=== PATIENT | female | born 1970 | race Caucasian/White ===

== ENCOUNTER 2018-07-10 07:40 | Outpatient (CLI) | payer BC, SELFPAY ==
[2018-07-10 09:00] LABS: Abs Immature Grans 0.04 k/cumm (0.0-0.09); Absolute Basophil Count 0.04 k/cumm (0.0-0.2); Absolute Eosinophil Count 0.28 k/cumm (0.0-0.7); Absolute Lymphocyte Count 3.31 k/cumm (1.2-3.4); Absolute Neutrophil Count 7.48 k/cumm (1.2-6.7); Basophils % 0.3; Eosinophils % 2.3; HCT 40.2 % (36.0-46.0); HGB 13.1 g/dL (12.0-15.5); Immature Grans % 0.3; Mean Corp. HGB Concentration 32.6 g/dL (32.0-36.0); Mean Corpuscular Volume 89.1 fL (80-95); Mean Platelet Volume 10.3 fL (8.0-11.0); Monocytes % 9.1; Platelet Count 379 x1000/uL (130-400); RBC 4.51 m/cumm (4.00-5.20); RBC Distribution Width 14.6 % (11.7-14.6); White Blood Cell Count 12.26 k/cumm (4.4-10.8)
[2018-07-10 09:05] LABS: Absolute Monocyte Count 1.12 k/cumm (0.11-0.7)
== END 2018-07-10 08:00 ==
PROVIDERS: PCP Nurse Practitioner; Visit Provider Nurse Practitioner
DX: R79.9 Abnormal finding of blood chemistry, unspecified (principal)
CPT/HCPCS: 36415; 85025

== ENCOUNTER 2018-08-25 00:35 | Outpatient (CLI) | payer BC, SELFPAY ==
--- NOTE | 2018-08-25 11:30 | DI.MAMMO_ITS ---
SYMPTOM/DIAGNOSIS: SCREENING, Z12.31 MAMMOGRAMS: Mammograms were interpreted according to the usual protocol including computer analysis with CAD system, tomosynthesis and C view imaging. Comparison is made with prior examinations. Breast density, category C. No masses or microcalcifications are seen. There is nothing to suggest malignancy. IMPRESSION: Negative mammogram. Routine screening is recommended. Category 1. MQSA ASSESSMENT OF FINDINGS: Negative. Category 1. Patient will receive a letter notifying them of these results. Bi-RADS category C. The breasts are heterogeneously dense, which may obscure small masses.
== END 2018-08-25 00:55 ==
PROVIDERS: PCP Nurse Practitioner; Visit Provider Nurse Practitioner
DX: Z12.31 Encounter for screening mammogram for malignant neoplasm of breast (principal)
CPT/HCPCS: 77063; 77067

== ENCOUNTER 2019-01-07 02:25 | Outpatient (CLI) | payer BC, SELFPAY ==
[2019-01-07 08:30] LABS: HCT 41.5 % (36.0-46.0); HGB 13.7 g/dL (12.0-15.5); Mean Corpuscular Volume 87.9 fL (80-95); Platelet Count 375 x1000/uL (130-400); RBC 4.72 m/cumm (4.00-5.20); RBC Distribution Width 14.9 % (11.7-14.6); White Blood Cell Count 9.74 k/cumm (4.4-10.8)
[2019-01-07 09:40] LABS: ALT 49 U/L (12-78); AST 20 U/L (15-37); Albumin 3.9 g/dL (3.4-5.0); Alkaline Phosphatase 71 U/L (46-116); BUN 25 mg/dL (7-18); Bilirubin, Total 0.3 mg/dL (0.2-1.0); CREATININE 0.92 mg/dL (0.55-1.02); Chloride 100 mmol/L (98-107); Cholesterol 240 mg/dL (50-200); Glucose 101 mg/dL (70-100); HDL Cholesterol 53 mg/dL (40-60); LDL CHOLESTEROL 165 mg/dL (<100); Potassium 4.2 mmol/L (3.5-5.1); Sodium 136 mmol/L (136-145); Total Protein 7.6 g/dL (6.4-8.2); Triglyceride 87 mg/dL (30-150)
[2019-01-07 09:48] LABS: Calcium 9.9 mg/dL (8.5-10.1)
== END 2019-01-07 02:45 ==
PROVIDERS: PCP Nurse Practitioner; Visit Provider Nurse Practitioner
DX: I10 Essential (primary) hypertension (principal); E78.5 Hyperlipidemia, unspecified
CPT/HCPCS: 36415; 80053; 80061; 83721; 85027

== ENCOUNTER 2019-04-07 01:09 | Outpatient (CLI) | payer BC, SELFPAY ==
[2019-04-07 09:48] LABS: Calculated LDL 193; Cholesterol 264 mg/dL (50-200); HDL Cholesterol 51 mg/dL (40-60); Triglyceride 101 mg/dL (30-150)
== END 2019-04-07 01:29 ==
PROVIDERS: PCP Nurse Practitioner; Visit Provider Nurse Practitioner
DX: E78.5 Hyperlipidemia, unspecified (principal); E66.9 Obesity, unspecified; I10 Essential (primary) hypertension
CPT/HCPCS: 36415; 80061; 83721; 84443

== ENCOUNTER 2019-06-18 07:28 | Outpatient (CLI) | payer BC, SELFPAY ==
[2019-06-18 08:37] LABS: Calculated LDL 85 mg/dL; Cholesterol 152 mg/dL (50-200); HDL Cholesterol 53 mg/dL (40-60); Triglyceride 73 mg/dL (30-150)
== END 2019-06-18 07:48 ==
PROVIDERS: PCP Nurse Practitioner; Visit Provider Nurse Practitioner
DX: E78.5 Hyperlipidemia, unspecified (principal)
CPT/HCPCS: 36415; 80061

== ENCOUNTER 2019-10-28 09:17 | Outpatient (CLI) | payer BC, SELFPAY ==
--- NOTE | 2019-10-28 15:47 | DI.RAD_ITS ---
EXAM: XR HIP RT COMPLETE AP PELVIS CLINICAL HISTORY: pain rt hip, M25.551 TECHNIQUE: COMPARISON: No exams were available for comparison FINDINGS: Two views were obtained. There is an IUD projected in the pelvic midline. No bony or soft tissue ab normality seen involving the hips or pelvis. IMPRESSION:
--- NOTE | 2019-10-28 15:49 | DI.RAD_ITS ---
EXAM: XR LUMBAR SPINE COMPLETE CLINICAL HISTORY: left leg numbness, right hip pain, R20.0, M25.551, ANESTHESIA OF SKIN TECHNIQUE: COMPARISON: No exams were available for comparison FINDINGS: Five views were obtained. IUD noted in the pelvic midline. Mild DJD of the SI joints noted bilatera lly. There is marked disc space narrowing at L1-2 and at L3-4 with associated vertebral body scleros is consistent with disc degeneration and with probable vacuum disc phenomenon at each of these levels . There are moderate hypertrophic degenerative changes involving the facet joints, particularly in t he lower lumbar region and hypertrophic spurring of the endplates is noted at L1-2 and L3-4. No evid ence of spondylolysis or spondylolisthesis. No compression fracture seen. IMPRESSION: Degenerative changes with evidence of disc degeneration, particularly at L1-2 and L3-4.
== END 2019-10-28 09:37 ==
PROVIDERS: PCP Nurse Practitioner; Visit Provider Nurse Practitioner
DX: M25.551 Pain in right hip (principal); R20.0 Anesthesia of skin; Z97.5 Presence of (intrauterine) contraceptive device; M79.605 Pain in left leg; M53.3 Sacrococcygeal disorders, not elsewhere classified; M51.36 Other intervertebral disc degeneration, lumbar region
CPT/HCPCS: 72110; 73502

== ENCOUNTER 2020-02-28 12:29 | Outpatient (CLI) | payer BC, SELFPAY ==
--- NOTE | 2020-02-28 13:00 | DI.RAD_ITS ---
EXAM: XR CERVICAL SPINE COMP 4-5V CLINICAL HISTORY: SHOOTING PAIN RIGHT ARM TO HAND. NECK PAIN, M79.601, M54.2 TECHNIQUE: Eight views were obtained. COMPARISON: No exams were available for comparison FINDINGS: Visualized lung apices are clear. Prevertebral soft tissues appear intact. There is a lower cervical kyphosis. There is disc space narrowing at C6-C7 with prominent anterior o steophyte formation at this level and anterior osteophyte or anterior ligament calcification at C5-6 as well. The neural foramina are not ideally visualized on the oblique views. Left neural foramina appear fairly well maintained with the possible exception of C7-T1. Right neural foramina not well v isualized. No significant vertebral compression deformity seen. Mild facet hypertrophic degenerative changes no everardo. IMPRESSION: Degenerative changes of the cervical spine as described above, predominantly involving the lower cerv ical spine. In the setting of possible radicular symptoms, additional evaluation with cervical spine MRI may be considered.
== END 2020-02-28 12:49 ==
PROVIDERS: PCP Nurse Practitioner; Visit Provider Nurse Practitioner
DX: M54.2 Cervicalgia (principal); M79.601 Pain in right arm; M79.641 Pain in right hand; M50.322 Other cervical disc degeneration at C5-C6 level; M50.323 Other cervical disc degeneration at C6-C7 level
CPT/HCPCS: 72050

== ENCOUNTER 2020-04-20 02:06 | Outpatient (CLI) | payer BC, SELFPAY ==
[2020-04-20 11:34] LABS: Hemoglobin A1C 5.5 % (3.8-5.6)
[2020-04-20 12:16] LABS: ALT 49 U/L (14-59); AST 18 U/L (15-37); Alkaline Phosphatase 74 U/L (46-116); Anion Gap 13.3 mmol/L (3-11); BUN 20 mg/dL (7-18); Bilirubin, Total 0.4 mg/dL (0.2-1.0); CO2 23.7 mmol/L (21.0-32.0); CREATININE 0.79 mg/dL (0.55-1.02); Calcium 10.1 mg/dL (8.5-10.1); Calculated LDL 87 mg/dL (<100); Chloride 101 mmol/L (98-107); Cholesterol 153 mg/dL (<200); Glucose 92 mg/dL (74-106); HDL Cholesterol 53 mg/dL (40-60); Potassium 4.3 mmol/L (3.5-5.1); Sodium 138 mmol/L (136-145); Total Protein 7.4 g/dL (6.4-8.2); Triglyceride 66 mg/dL (<150)
== END 2020-04-20 02:26 ==
PROVIDERS: PCP Nurse Practitioner; Visit Provider Nurse Practitioner
DX: I10 Essential (primary) hypertension; R73.01 Impaired fasting glucose; E78.5 Hyperlipidemia, unspecified; E66.9 Obesity, unspecified
CPT/HCPCS: 36415; 80053; 80061; 83036

== ENCOUNTER 2020-09-01 03:32 | Outpatient (CLI) | payer BC, SELFPAY ==
--- NOTE | 2020-09-01 15:00 | DI.MAMMO_ITS ---
EXAM: MG MAMMO SCREENING CLINICAL HISTORY: screening TECHNIQUE: Bilateral full field digital CC and MLO mammographic images were obtained with 3D tomosyn thesis and utilizing computer aided detection (CAD). COMPARISON: Available for comparison. FINDINGS: Masses/Architectural Distortion: None seen. Microcalcifications: No suspicious pleomorphic-type are seen. Skin Thickening/Nipple Retraction: None. IMPRESSION: 1. No significant interval change with no specific features of malignancy noted. 2. Unless there is more urgent need, screening mammography is recommended, as per [employer] guidelines. BI-RADS Category 1 - Negative Breast Density - Category C - Heterogeneously dense The mammogram demonstrates the patient's breast tissue is dense. Dense breast tissue is very common a nd is not abnormal but dense breast tissue can make it harder to find cancer on a mammogram. Also, de nse breast tissue may increase their breast cancer risk. This information about the result of the [facility] [place] [facility] mogram report was provided to the patient to raise their awareness. Use this report when you speak wi th the patient about their risks for breast cancer, which includes their family history. At that time , you may recommend for more screening tests (Ultrasound or MRI) as they might be useful based on the ir risk. A negative radiographic report should not delay biopsy if a dominant or clinically suspicious mass is present. Up to ten percent of cancers are not identified on mammography. A negative report may reinforce clinical impression. Adenosis and dense breasts may obscure an underlying neoplasm. False positive reports average 6 to 10%. Patient will receive a letter notifying them of these results.
== END 2020-09-01 03:52 ==
PROVIDERS: PCP Nurse Practitioner; Visit Provider Nurse Practitioner Women's Health
DX: Z12.31 Encounter for screening mammogram for malignant neoplasm of breast (principal); R92.2 Inconclusive mammogram
CPT/HCPCS: 77063; 77067

== ENCOUNTER 2020-09-12 17:53 | Outpatient (CLI) | payer BC, SELFPAY ==
--- NOTE | 2020-09-12 09:20 | DI.RAD_ITS ---
EXAM: XR KNEE LT 4V AP,LAT,BIJAL,PAT CLINICAL HISTORY: Left knee pain for 5-6 mos. Worse at night. M25.562. TECHNIQUE: 2D digital imaging was performed. COMPARISON: No exams were available for comparison FINDINGS: BONES: No acute fracture is present. No lytic or blastic bony lesion is seen. JOINTS: There is mild narrowing of the medial femoral tibial joint space and mild periarticular spurr ing. There is mild narrowing of the patellofemoral joint which also shows mild spurring. No joint e ffusion is seen. SOFT TISSUE: Normal. IMPRESSION: Mild degenerative changes of the medial femoral tibial joint and patellofemoral joint. DATA REPOSITORY: RADIATION DOSE DELIVERED:
== END 2020-09-12 18:13 ==
PROVIDERS: PCP Nurse Practitioner; Visit Provider Nurse Practitioner
DX: M17.12 Unilateral primary osteoarthritis, left knee (principal)
CPT/HCPCS: 73564

== ENCOUNTER 2020-10-27 03:37 | Outpatient (CLI) | payer BC, SELFPAY ==
[2020-10-28 15:29] LABS: COVID-19 RT-PCR UVMMC Result Negative (Negative)
== END 2020-10-27 03:57 ==
PROVIDERS: PCP Nurse Practitioner; Visit Provider Surgery
DX: Z11.52 Encounter for screening for COVID-19 (principal); Z01.818 Encounter for other preprocedural examination
CPT/HCPCS: U0003

== ENCOUNTER 2020-10-31 06:05 | Day surgery (SDC) | payer BC, SELFPAY ==
--- NOTE | 2020-10-30 21:42 | HPE_ITS ---
Date of service: 10/31/20 Time of Service: 07:22 Assessment and Plan Assessment and plan (1) Encounter for screening colonoscopy: Status: Acute Assessment and plan: Plan:Colonscopy w/ MAC The patient will be scheduled by my office. The pt understands that they need to do a bowel prep and the importance of hydration during this. The patient understands there is a theoretical risk of renal failure. For healthy patients we use Gatorade/Miralax Prep. For anyone with renal concerns- GoLytely will be used. Plavix and coumadin will need to be held except in unusual circumstances. Patients in A. Fib do not need to be bridged with Lovenox or on CVA prophylaxis. A baby ASA can be continued but full dose ASA needs to be stopped for 10 days prior to the procedure. A complete H & P is required within 30 days of the procedure. MAC is used for the colonoscopy. Colonoscopy does not require antibiotics prophylaxis. Risks: Informed consent is obtained for the procedural (explained in simple layman's terms that the pt and/or family could understand) explaining risks vs benefits and alternatives to the procedure and consequences if we do not do the procedure and need/rational for the procedure. Risks include but are not limited to: bleeding, infection, perforation of colon. This would necessitate emergency surgery to repair the damage w/ possible ostomy; and other associated complications w/ the required surgery. Also complications of anesthesia including aspiration, AZ/CVA/. pt is a higher risk of aspiration / other anethesetic complications b/c of BMI of 51. I discussed with the patient would they could expect during the procedure, post procedure and recovery time and risks. The patient understands that they need to have a ride home after the procedure. The patient was given all this information in writing and expressed understanding. Thank you for allowing me to participate in the care of this Patient. A copy of the Endoscopy report will be forwarded to your office. If there are any questions or concerns please feel free to contact our office. (2) Obesity, morbid, BMI 50 or higher: Status: Acute (3) Hyperlipidemia: Status: Acute (4) Hypertension: Status: Acute (5) Impaired fasting glucose: Status: Acute History of Present Illness Narrative: her first screening colonoscopy. She has no abdominal pain, change in bowel habits or blood in the stool. Generally feels well, no chest pain or SOB. Her father had a mass in the colon that may have involved the kidney. She is not certain if the mass was benign or cancerous. Review of Systems All systems reviewed & are unremarkable except as noted in HPI and below PFSH Medical History Hyperlipidemia (12/05/11) FRS 7%; 02/2014 PCEq 1.9% Hypertension (03/10/13) IUD (intrauterine device) in place for menstrual control. inserted 12/2015. Left knee pain Medial epicondylitis, right elbow s/p DeQuervains tenosynovitis 2017. Obesity, morbid, BMI 50 or higher Obesity, unspecified (12/05/11) BMI 48.8 01/01/16 Right hip pain Surgical History Fine Needle aspiration neck mass (03/10/15) Negative for malignant cells; Reactive lymphocytes Dr. Gay H/O wisdom tooth extraction S/P tonsillectomy Family History Mother Essential hypertension Non Hodgkin's lymphoma Father Heart disease Myocardial infarction Neoplasm liver CA, skin CA. 79yo 2017. Maternal Aunt Neoplasm breast CA Maternal Cousin Neoplasm breast CA Social History Smoking/Tobacco Use Status: Never Smoking risk assessment performed?: Yes Alcohol Intake: current Alcohol Intake frequency: a few times a month Drug use: Never Substance use type: does not use Household members: spouse and other Details: H-Kaden. 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 Joan. 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 Pt amenorrheic. Unsure about natural menopause.) History History 2 Para Hx # Term Pregnancies 2 Multiple births Hx # Pregnancies Ectopic pregnancies AB induced Hx Number of Living Children AB spontaneous Meds Home Medications and Allergies Home Medications Medication Instructions Recorded Confirmed Type Mirena 1 ea INTRAUTERINE ONCE #1 implant 05/24/16 10/30/20 History magnesium 250 mg tablet 500 mg PO DAILY tab 10/28/19 10/30/20 History atorvastatin 20 mg tablet 20 mg PO DAILY #90 tab 12/27/19 10/30/20 Rx lisinopril 10 mg tablet 10 mg PO DAILY #90 tab-cap 02/14/20 10/30/20 Rx diltiazem HCl 180 mg 360 mg PO DAILY #180 tab-cap 02/28/20 10/30/20 Rx capsule,extended release 24 hr acetaminophen 500 mg tablet 1,000 mg PO TID PRN tab 04/07/20 10/30/20 History diclofenac sodium 1 % topical gel 2 g TP QID PRN #100 g 09/12/20 10/30/20 Rx multivitamin 1 tab PO DAILY 09/12/20 10/30/20 History gabapentin 100 mg capsule 200 mg PO TID #540 cap 09/20/20 10/30/20 Rx ibuprofen 800 mg tablet 800 mg PO Q8H PRN #90 tab 09/20/20 10/30/20 Rx spironolactone 25 1 tab PO DAILY #90 tab-cap 10/23/20 10/30/20 Rx mg-hydrochlorothiazide 25 mg tablet Allergies Allergy/AdvReac Type Severity Reaction Status Date / Time codeine AdvReac Mild NAUSEA/VOMI Verified 09/28/20 10:57 TING topiramate AdvReac Mild CONSTIPATIO Verified 09/28/20 10:57 N Exam Const General: cooperative, healthy appearing, comfortable, no acute distress, well developed and well groomed Nutritional Appearance: average body habitus and well nourished Orientation: alert, awake and oriented x3 HENMT Head: normal to inspection, normocephalic and atraumatic Ears: hearing grossly normal bilaterally and external ears normal General nose exam: external nose normal Face and sinus: normal facial exam and sinuses nontender Mouth: oral mucosae normal, lip normal, tongue normal and moist mucous membranes Teeth and gingiva: dentition normal Eyes General: appearance normal, both eyes and all related structures Conjunctivae: conjunctivae normal Sclera: sclerae normal Pupils: PERRL Neck Neck: normal visual inspection and full ROM Chest Chest: normal inspection of the chest Resp Effort & Inspection: normal respiratory effort, able to speak in complete sentences, no cough, no nasal flaring, not tachypneic and no use of accessory muscles Auscultation: clear to auscultation bilaterally, no rales, no rhonchi and no wh eezes Cardio Jugular venous pressure: no JVD Rate: regular rate Rhythm: regular rhythm GI Inspection: normal to inspection, no edema and non-distended Palpation: soft, no masses, nontender and No ascites Auscultation: normal bowel sounds Skin General skin exam: no rashes or lesions noted Trauma: no lacerations or abrasions Neuro General: patient alert, patient oriented x3, oriented, gait normal, moves all extremities, no focal motor deficits and CN's II-XI intact bilaterally Cognition: normal cognition Speech: speech normal Gait: normal gait Motor: muscle tone normal throughout Extrem General: normal to inspection, full ROM and no clubbing, cyanosis or edema Psych Appearance: grossly normal and well kempt Mental Status: mental status grossly normal Speech and Movement: speech and movement normal Affect: normal affect COVID-19 Screening Have you, or household traveled for leisure in last 14 days?: No Had IN PERSON contact w/suspected or confirmed C-19 person: No
[2020-10-31 06:10] VITALS: BP 158/95; PULSE 79; RESP 18; TEMP 36.8; O2SAT 98
[2020-10-31] MEDS: Lactated Ringers 1,000 ML 80 ML IV (06:42)
--- NOTE | 2020-10-31 06:59 | W.PM.HP.N ---
Date of service: 10/31/20 Time of Service: 07:08 Assessment and Plan Assessment and plan (1) Encounter for screening colonoscopy: Status: Acute Assessment and plan: A// Patient presents for her first Colonoscopy Screening. She has a positive family history of Colon cancer in her father. She denies any bowel habit changes. Reviewed and discussed the procedure of a Colonoscopy, including the potential risks to include missed polyps, injury to the bowel, bleeding as well as side effects associated with the medications. All patient's questions were answered to patient satisfaction. No guarantees or promises were made. P// Colonoscopy Under sedation. Patient seen and examined. Agree with above History of Present Illness History of Present Illness Chief Complaint: Colonoscopy Pre-Op Narrative: 50 y/o female presents for updated H&P for screening Colonoscopy. She denies any changes in her health since last seen in the office. This is her first screening Colonoscopy. She reports a history of colon cancer in her father. She denies any bowel habit changes, abdominal pain, bloody stools and melena. She denies any chest pain, palpitations, SOB or SOB with exertion. Review of Systems Constitutional Constitutional: Reports as per HPI Eyes Eyes: Denies change in vision ENT Ears, Nose, Mouth, and Throat: Denies dysphagia, Denies neck pain, Denies odynophagia and Denies sore throat Cardiovascular Cardiovascular: Denies chest pain, Denies chest pain at rest, Denies chest pain with activity, Denies palpitations, Denies dyspnea and Denies dyspnea on exertion Respiratory Respiratory: Denies cough, Denies dyspnea, Denies dyspnea on exertion and Denies wheezing Gastrointestinal Gastrointestinal: Denies abdominal pain, Denies melena, Denies hematochezia, Denies change in bowel habits, Denies constipation, Denies dysphagia, Denies diarrhea and Denies odynophagia Genitourinary Genitourinary: Denies urinary incontinence and Denies urinary hesitancy Musculoskeletal Musculoskeletal: Denies neck pain Integumentary/Breasts Skin/Breast: Denies bleeding lesions Endocrine Endocrine: Denies palpitations Hematologic/Lymphatic Hematologic/Lymphatic: Denies easy bleeding and Denies easy bruising Allergic/Immunologic Allergic/Immunologic: Denies wheezing [facility] Medical History Hyperlipidemia (12/05/11) FRS 7%; 02/2014 PCEq 1.9% Hypertension (03/10/13) IUD (intrauterine device) in place for menstrual control. inserted 12/2015. Left knee pain Medial epicondylitis, right elbow s/p DeQuervains tenosynovitis 2017. Obesity, morbid, BMI 50 or higher Obesity, unspecified (12/05/11) BMI 48.8 01/01/16 Right hip pain Surgical History (Updated 11/01/20 @ 07:04 by Josseline Oakes RN) Fine Needle aspiration neck mass (03/10/15) Negative for malignant cells; Reactive lymphocytes Dr. Gay H/O wisdom tooth extraction History of colonoscopy (~10/31/20) S/P tonsillectomy Family History Mother Essential hypertension Non Hodgkin's lymphoma Father Heart disease Myocardial infarction Neoplasm liver CA, skin CA. 79yo 2017. Maternal Aunt Neoplasm breast CA Maternal Cousin Neoplasm breast CA Social History Smoking/Tobacco Use Status: Never Smoking risk assessment performed?: Yes Alcohol Intake: current Alcohol Intake frequency: a few times a month Drug use: Never Substance use type: does not use Household members: spouse and other Details: H-Kaden. 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 Joan. 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 Pt amenorrheic. Unsure about natural menopause.) History History 2 Para Hx # Term Pregnancies 2 Multiple births Hx # Pregnancies Ectopic pregnancies AB induced Hx Number of Living Children AB spontaneous Meds Home Medications and Allergies Home Medications Medication Instructions Recorded Confirmed Type Mirena 1 ea INTRAUTERINE ONCE #1 implant 05/24/16 10/31/20 History magnesium 250 mg tablet 500 mg PO DAILY tab 10/28/19 10/30/20 History atorvastatin 20 mg tablet 20 mg PO DAILY #90 tab 12/27/19 10/31/20 Rx lisinopril 10 mg tablet 10 mg PO DAILY #90 tab-cap 02/14/20 10/30/20 Rx diltiazem HCl 180 mg 360 mg PO DAILY #180 tab-cap 02/28/20 10/31/20 Rx capsule,extended release 24 hr acetaminophen 500 mg tablet 1,000 mg PO TID PRN tab 04/07/20 10/31/20 History diclofenac sodium 1 % topical gel 2 g TP QID PRN #100 g 09/12/20 10/31/20 Rx multivitamin 1 tab PO DAILY 09/12/20 10/30/20 History gabapentin 100 mg capsule 200 mg PO TID #540 cap 09/20/20 10/31/20 Rx ibuprofen 800 mg tablet 800 mg PO Q8H PRN #90 tab 09/20/20 10/31/20 Rx spironolactone 25 1 tab PO DAILY #90 tab-cap 10/23/20 10/31/20 Rx mg-hydrochlorothiazide 25 mg tablet Allergies Allergy/AdvReac Type Severity Reaction Status Date / Time codeine AdvReac Mild NAUSEA/VOMI Verified 10/31/20 06:22 TING topiramate AdvReac Mild CONSTIPATIO Verified 10/31/20 06:22 N Exam Const General: cooperative, healthy appearing and no acute distress Orientation: alert and oriented x3 [facility] Head: normal to inspection, no abrasions and no raccoon eyes Ears: hearing grossly normal bilaterally General nose exam: external nose normal and no nasal discharge noted Resp Effort & Inspection: normal respiratory effort, no audible wheezes and no cough Auscultation: clear to auscultation bilaterally Cardio Jugular venous pressure: no JVD Rate: regular rate Rhythm: regular rhythm Heart Sounds: S1 normal, S2 normal, no click and no murmurs GI Inspection: normal to inspection and non-distended Palpation: soft, no guarding and nontender Auscultation: normal bowel sounds Skin General skin exam: no rashes or lesions noted Neuro General: patient alert, patient oriented x3 and gait normal Cognition: normal cognition Speech: speech normal Results Last Vital Signs Temp 36.8 C 10/31/20 06:10 Pulse 79 10/31/20 06:10 Resp 18 10/31/20 06:10 BP 158/95 H 10/31/20 06:10 Pulse Ox 98 10/31/20 06:10 COVID-19 Screening Have you, or household traveled for leisure in last 14 days?: No Had IN PERSON contact w/suspected or confirmed C-19 person: No
--- NOTE | 2020-10-31 08:10 | W.COLOREPORT ---
Date of service: 10/31/20 Time of Service: 08:11 Colonoscopy Report Date of procedure: 10/31/20 Post-op diagnosis procedure note: same Surgeon: Alka Newell Anesthesia proc note operative: GETA Estimated blood loss (mL): 0 Pathology: none sent Complications: None Disposition: same day Prep: Miralax/Dulcolax Retraction Time: 8mins Procedure Description: After informed consent was obtained the patient was taken to the procedure room and placed in a left decubitous position. Monitors were applied and a time out was done. The patients name, date of , procedure, allergies to medications and metal in their body was reviewed. The patient was then sedated. Once sedated and comfortable a rectal exam was done. External external hemorrhoid timesone. internal exam revealed a normal sphincter tone and no palpable masses. The scope was then introduced and retrofelexed. No internal hemorrhoids were identified. The scope was then advanced to the cecum w/out difficulty. The TI and appendiceal orifice were identified. The prep was good. The scope was then slowly retracted over 8 minutes back into the rectum. There are no AVMs, polyps, diverticula apparent. The Mucosa is pink and healthy. The scope was removed and the patient was woken up and taken back to Same day surgery in stable condition. The patient tolerated the procedure well and there were no immediate complications. Follow up: The patient should follow up in 5 years unless they develop changes in bowel habits or other new gastrointestinal complaints.
--- NOTE | 2020-10-31 08:15 | W.PM.DSUDISC ---
Discharge Plan Disposition Patient Disposition: HOME Condition: Good Discharge Details Reason For Visit: colon scope Attending Provider: Alka Newell Primary Care Provider: Bernice Guevara Home Meds and New Rx's Prescriptions: No Action magnesium 250 mg tablet 500 mg PO DAILY RF: 0 multivitamin Tablet 1 tab PO DAILY RF: 0 diclofenac sodium 1 % gel 2 g TP QID PRN Qty: 100 RF: 4 diltiazem HCl [Cardizem CD] 180 mg capsule,extended release 24hr 360 mg PO DAILY Qty: 180 RF: 3 Mirena 1 EACH intrauterine device 1 ea Intrauterine ONCE Qty: 1 RF: 0 atorvastatin 20 mg tablet 20 mg PO DAILY Qty: 90 RF: 3 lisinopril 10 mg tablet 10 mg PO DAILY Qty: 90 RF: 3 acetaminophen 500 mg tablet 1,000 mg PO TID PRNRF: 0 gabapentin 100 mg capsule 200 mg PO TID Qty: 540 RF: 1 ibuprofen 800 mg tablet 800 mg PO Q8H PRN (Reason: pain) Qty: 90 RF: 3 spironolacton-hydrochlorothiaz [Aldactazide] 25-25 mg tablet 1 tab PO DAILY Qty: 90 RF: 3 Discharge Instructions Additional Instructions: Findings:normal colon Follow up:repeat in 5yrs time to family history of colorectal cancer. Please call if you develop: fevers >101.5 Nausea or Vomiting Abdominal pain that is not transient DAY SURGERY UNIT POST COLONOSCOPY INSTRUCTIONS 1. Because there will be medication in your system for the next 24 hours, you may feel a little sleepy. Your coordination will be affected. Therefore: a. Do not drive or operate dangerous equipment for 24 hours. b. Do not drink alcohol beverages for 24 hours (not even beer). c. Plan to go home and rest for the day. 2. Generally there are no restrictions on your activity after a day or so has gone by, but you may feel a bit fatigued for a few days. 3 After you arrive home you may have a light meal and return to a normal diet as you can tolerate it without feeling sick to your stomach. 4. After surgery, you may feel pain or discomfort. This should be only transient, but if it persists please contact your doctor. 5. If there are any questions regarding the findings of your procedure, please feel free to contact your doctor. 6. If you are unable to contact your doctor with a problem, contact the hospital at [phone]. 3. Continue all your regular medications unless directed otherwise. I understand the above instructions and have no questions. Signature of Patient or Responsible Adult Escort Date/Time Name of Responsible Adult Escort Signature of Nurse Date/Time Activity:: No lifting over 20 pounds or strenuous activity x24 hours. Diet:: Small light meals x24 hours. Discharge Orders Discharge Orders: Discharge Order (Routine); Ordered 10/31/20 Ordered By: Alka Newell DS: Diagnosis Discharge Diagnosis (1) Encounter for screening colonoscopy: Status: Acute
[2020-10-31 08:45] VITALS: BP 138/74; PULSE 74; RESP 16; TEMP 36; O2SAT 98
== END 2020-10-31 09:05 | disposition home or self-care (01) ==
PROVIDERS: PCP Nurse Practitioner; Visit Provider Surgery
PROC: 0DJD8ZZ Inspection of Lower Intestinal Tract, Via Natural or Artificial Opening Endoscopic (ICD-10-PCS; CPT 45378; principal; 2020-10-31 07:30)
DX: Z12.11 Encounter for screening for malignant neoplasm of colon (principal); I10 Essential (primary) hypertension
CPT/HCPCS: 45378; 81025; 99221; J2405

== ENCOUNTER 2021-02-01 03:09 | Outpatient (CLI) | payer BC, SELFPAY ==
[2021-02-01 08:07] LABS: ESR 24 mm//hr (0-30)
[2021-02-01 09:04] LABS: ALT 60 U/L (14-59); AST 20 U/L (15-37); Albumin 3.9 g/dL (3.4-5.0); Alkaline Phosphatase 87 U/L (46-116); Anion Gap 10.7 mmol/L (3-11); BUN 22 mg/dL (7-18); Bilirubin, Total 0.3 mg/dL (0.2-1.0); CO2 25.3 mmol/L (21.0-32.0); CREATININE 0.7 mg/dL (0.55-1.02); Calculated LDL 91 mg/dL (<100); Chloride 104 mmol/L (98-107); Cholesterol 163 mg/dL (<200); Glucose 108 mg/dL (74-106); HDL Cholesterol 53 mg/dL (40-60); Potassium 4.5 mmol/L (3.5-5.1); Sodium 140 mmol/L (136-145); Total Protein 7.6 g/dL (6.4-8.2); Triglyceride 95 mg/dL (<150)
[2021-02-01 09:35] LABS: C-Reactive Protein 1.04 mg/dL (0.0-0.3)
[2021-02-01 16:49] LABS: Rheumatoid Factor <8.6 IU/mL (<12.0)
[2021-02-02 10:33] LABS: Lyme Ab w Rflx to Lyme Confirm Negative (Negative)
[2021-02-02 15:00] LABS: ANA Interpretation Negative (Negative)
[2021-02-05 18:24] LABS: Anaplasma phagocytophilum Negative (Negative); B. miyamotoi PCR Negative (Negative); Babesia divergens/MO-1 Negative (Negative); Babesia duncani Negative (Negative); Babesia microti Negative (Negative); Ehrlichia chaffeensis Negative (Negative); Ehrlichia ewingii/canis Negative (Negative); Ehrlichia muris eauclairensis Negative (Negative)
== END 2021-02-01 03:10 | disposition home or self-care (01) ==
LOC: LBO 03:09
PROVIDERS: PCP Nurse Practitioner; Visit Provider Nurse Practitioner
DX: E78.5 Hyperlipidemia, unspecified (principal); I10 Essential (primary) hypertension; M25.521 Pain in right elbow; M25.522 Pain in left elbow; M25.531 Pain in right wrist; M25.532 Pain in left wrist; M25.571 Pain in right ankle and joints of right foot; M25.572 Pain in left ankle and joints of left foot
CPT/HCPCS: 36415; 80053; 80061; 85652; 87798; 86038; 86140; 86431; 86618

== ENCOUNTER 2022-11-28 01:44 | Outpatient (CLI) | payer BC, SELFPAY ==
[2022-11-28 07:15] LABS: HCT 44.5 % (36.0-46.0); HGB 14.3 g/dL (11.2-15.7); MCH 28.8 pg (27.0-33.0); MCHC 32.1 % (32.0-36.0); MCV 90 fL (80-95); MPV 9.8 fL (8.0-11.0); Platelet Count 412 10^3/uL (130-400); RBC 4.96 10^6/uL (3.93-5.22); RDW 13.9 % (11.7-14.6); WBC 11.77 10^3/uL (4.4-10.8)
[2022-11-28 07:43] LABS: Hemoglobin A1C 5.5 % (<5.7)
[2022-11-28 07:53] LABS: ALT 52 U/L (14-59); AST 22 U/L (15-37); Alkaline Phosphatase 84 U/L (46-116); Anion Gap 9.6 mmol/L (3-11); BUN 25 mg/dL (7-18); Bilirubin, Total 0.4 mg/dL (0.2-1.0); CO2 27.4 mmol/L (21.0-32.0); CREATININE 0.8 mg/dL (0.55-1.02); Calcium 10.2 mg/dL (8.5-10.1); Calculated LDL 79 mg/dL (<100); Chloride 99 mmol/L (98-107); Cholesterol 161 mg/dL (<200); Glucose 99 mg/dL (74-106); HDL Cholesterol 63 mg/dL (40-60); Potassium 3.7 mmol/L (3.5-5.1); Sodium 136 mmol/L (136-145); TSH (W/Ref FT4) 1.46 uIU/mL (0.36-3.74); Triglyceride 99 mg/dL (<150)
== END 2022-11-28 01:45 | disposition home or self-care (01) ==
LOC: LBO 01:44
PROVIDERS: PCP Nurse Practitioner; Visit Provider Nurse Practitioner
DX: E66.9 Obesity, unspecified (principal); E78.5 Hyperlipidemia, unspecified; I10 Essential (primary) hypertension; R73.01 Impaired fasting glucose
CPT/HCPCS: 36415; 80053; 80061; 85027; 83036; 84443

== ENCOUNTER 2022-12-05 00:39 | Outpatient (CLI) | payer BC, SELFPAY ==
--- NOTE | 2022-12-05 06:45 | DI.MAMMO_ITS ---
Exam(s) MAMMO SCREENING EXAM: MAMMO SCREENING CLINICAL HISTORY: screening,z12.39. TECHNIQUE: Bilateral full field digital CC and MLO mammographic images were obtained with 3D tomosyn thesis and utilizing computer aided detection (CAD). COMPARISON: Prior mammograms were reviewed. FINDINGS: There has been no significant change in the appearance and distribution of the fibroglandular tissue. There are no new spiculated masses nor malignant appearing microcalcification groups. There is no significant architectural distortion nor skin thickening-retraction. IMPRESSION: No radiographic evidence of malignancy. BI-RADS Category 1 - Negative Breast Density - Category C - Heterogeneously dense Breast density Category C or D implies that the patient has dense breast tissue. Dense breast tissue can make it harder to find cancer on a mammogram. Dense breast tissue is also associated with an incr eased risk of breast cancer. This information about the result of the mammogram report was provided to the patient to raise their awareness. Use this report when you speak with the patient about their risks for breast cancer, which includes their family history. At that time, you may recommend additional screening tests (Ultrasoun d or MRI) as these tests may add significant information. A negative radiographic report should not delay biopsy if a dominant or clinically suspicious mass is present. Up to ten percent of cancers are not identified on mammography. A negative report may reinforce clinical impression. Adenosis and dense breasts may obscure an underlying neoplasm. False positive reports average 6 to 10%. Patient will receive a letter notifying them of these results.
== END 2022-12-05 00:59 ==
LOC: DI 00:40
PROVIDERS: PCP Nurse Practitioner; Visit Provider Nurse Practitioner
DX: Z12.31 Encounter for screening mammogram for malignant neoplasm of breast (principal); R92.8 Other abnormal and inconclusive findings on diagnostic imaging of breast
CPT/HCPCS: 77063; 77067

== ENCOUNTER 2023-02-07 00:41 | Outpatient (CLI) | payer BC, SELFPAY ==
--- NOTE | 2023-02-07 07:15 | DI.RAD_ITS ---
Exam(s) XR LUMBAR SPINE COMPLETE EXAM: XR LUMBAR SPINE COMPLETE CLINICAL HISTORY: LLE burning pain, numbness laterally,r20.0,r52. TECHNIQUE: 2D digital imaging was performed. COMPARISON: CR XR LUMBAR SPINE COMPLETE from 10/28/2019 FINDINGS: Five views: No evidence compression fracture. There is advanced disc space narrowing at L3-4 level again noted a nd again noted be more prominent narrowing on the right side of this disc space as well as increased size right lateral osteophytes at this level. There is also mild anterolisthesis of L3 upon L4 again noted. There is also advanced disc space narrowing at L1-2 level again noted. This appears unchanged. The disc spaces at L4-5 and L5-S1 levels exhibit normal height. There are mild facet joint degenerative changes. Sacroiliac joints appear unremarkable. Very mild s coliosis convex left noted due to the asymmetric disc space narrowing on the right side at L3-4 level IUD again noted in the central pelvis. IMPRESSION: Advanced disc space narrowing at L1-2 and L 3-4 levels. When compared to October 2019 there has been increase in size of lateral right-sided osteophytes at L 3-4 level, and there is asymmetric narrowing of the right side of this disc space when compared to th e left side. Suspect that there is asymmetric right-sided foraminal stenosis at this level. If clin ically indicated this could be further study with MRI. DATA REPOSITORY: RADIATION DOSE DELIVERED:
--- NOTE | 2023-02-07 07:15 | DI.RAD_ITS ---
Exam(s) XR WRIST RT COMPLETE EXAM: XR WRIST RT COMPLETE CLINICAL HISTORY: chronic bilateral wrist pain, m25.531,m25.532. TECHNIQUE: 2D digital imaging was performed. COMPARISON: No exams were available for comparison FINDINGS: 3 views No evidence of fracture or dislocation nor significant ulnar variance. Small calcification adjacent to the ulnar styloid does not have the appearance of a typical acute fracture fragment. Scaphoid and scapholunate distance normal. No significant degenerative changes. No erosions. Bone density normal. IMPRESSION: Minimal findings. DATA REPOSITORY: RADIATION DOSE DELIVERED:
--- NOTE | 2023-02-07 07:15 | DI.RAD_ITS ---
Exam(s) XR WRIST LT COMPLETE EXAM: XR WRIST LT COMPLETE CLINICAL HISTORY: chronic bilateral wrist pain,m25.531,m25.532. TECHNIQUE: 2D digital imaging was performed. COMPARISON: No exams were available for comparison FINDINGS: 3 views No evidence of acute fracture or dislocation nor significant ulnar variance. Scaphoid and scapholuna te distance are normal. No degenerative changes. No osseous lesions. Bone density is normal. IMPRESSION: No significant osseous findings. DATA REPOSITORY: RADIATION DOSE DELIVERED:
== END 2023-02-07 01:01 ==
LOC: DI 00:42
PROVIDERS: PCP Nurse Practitioner; Visit Provider Nurse Practitioner
DX: M25.531 Pain in right wrist (principal); M25.532 Pain in left wrist; R20.0 Anesthesia of skin; R52 Pain, unspecified
CPT/HCPCS: 72110; 73110

== ENCOUNTER 2023-02-07 09:11 | Outpatient (REF) | payer BC, SELFPAY ==
--- NOTE | 2023-02-07 08:45 | PAPFT_PTH ---
PATIENT: Avani Ellis LOC: [facility] U#:[id number] AGE/SX: 52/F ROOM: RE02/07/[address]: Argentina Gunter : 1970 BED: DIS: 02/07/2023 SPEC #: [id number] RECD: 02/07/23 13:03 STATUS: CLARICE REEvan #: [id number] BIJU: 02/07/23 08:[address]: Argentina Gunter DEPT: [facility] Cytology RECD BY: Shanice Daley ENTERED: 02/07/23 13:03 SP TYPE: PAPFT OTHR DR: Bernice Guevara APRN Tissues: 1 - CX/ENDOCX FOR PAP SMEARS Procedures: PAP THIN PREP/[facility] Screening Comments: [id number]
== END 2023-02-07 09:12 | disposition home or self-care (01) ==
LOC: LBN 09:11
PROVIDERS: PCP Nurse Practitioner; Visit Provider Obstetrics & Gynecology Gynecology
DX: Z12.4 Encounter for screening for malignant neoplasm of cervix (principal)
CPT/HCPCS: 88142

== ENCOUNTER 2023-05-06 00:24 | Outpatient (CLI) | payer BC, SELFPAY ==
--- NOTE | 2023-05-06 07:00 | DI.NM_ITS ---
APPROVED REPORT Exam: Pharmacologic Patient Location: Out-Patient Room/Bed: Stress Nurse: Brionna Hong RN Ordering Provider:DESTINY LARIOS, Contact Number: [phone] BMI: 46.05 Baseline Rhythm: Sinus Rhythm Indications: Chest pressure Medical History Medical History: Obesity, HLD, HTN, migraine, chronic pain Cardiac Medications: Tumeric root, spironolactone, semaglutide, magnesium, lisinopril, gabapentin, di ltiazem ER, atorvastatin Allergies: Codeine, topiramate Cardiac Risk Factors: Family hx, HTN, HLD, obesity Previous Cardiac Procedures: None Pretest Chest Pain Characteristics: None Exercise History: Indeterminate Physical Disabilities: None Lung Sounds: Clear to auscultation Heart Sounds: Regular Stress Test Details Test: Exercise stress converted to pharmacologic stress due to failure to obtain a diagnostic stress test. Reason for pharmacologic stress test: Artifact with ambulation . Nuclear Acquisition: Rest Tc-99m/Stress Tc-99m 1 day Rest Isotope: Tc-99m Sestamibi. Dose: 12.0 Date: 05/06/2023 Injection Time: 0905 Stress Isotope: Tc-99m Sestamibi. Dose: 36.0 Date: 05/06/2023 Injection Time: 1110 HR Resting HR Supine: 70 bpm Max Heart Rate (APMHR): 165.888014 bpm Resting HR Standin bpm Target HR (85% APMHR): 140.792954 bpm Max HR Achieved: 107 bpm % of APMHR: 64.85 Recovery HR: 74 bpm BP Resting BP Supine: 120/70 mmHg Resting BP Standin/92 mmHg Max BP: 164/82 mmHg Recovery BP: 132/88 mmHg BP response to stress: Normal blood pressure response to stress. ECG Resting ECG: Sinus Rhythm Ectopy: None Stress ECG: Sinus Rhythm ST Change: Nondiagnostic low heart rate Arrhythmia: Rare PVC Recovery ECG: Sinus Rhythm Recovery ST Change: Nondiagnostic low heart rate Recovery Arrhythmia: None Clinical Stress Symptoms: 3/10 Chest tightness Angina Score: Non-Limiting Rate Pressure Product: [id number] Stress ECG Conclusion 1. Resting electrocardiogram was within normal limits 2. Patient underwent testing using pharmacologic stress with regadenoson 3. Peak heart rate achieved was 65% of predicted for age 4. The electrocardiographic portion of the test was nondiagnostic 5. See MPI report Stress Test Summary STAGE Time (mins) Speed (mph) Grade (%) HR BP SpO2 SYMPTOMS METS Supine 70 120/70 Standing 78 142/92 1 3 1.7 10 61 4.5 1 min post Lexiscan injection 89 160/80 98 3 min post Lexiscan injection 83 164/82 3/10 chest tightness 6 min post Lexiscan injection 79 158/80 95 2/10 chest tightness 9 min post Lexiscan injection 74 132/88 Chest tightness resolved. Transitioned to laying lexiscan due to significant artifact with ambulation. MPI Conclusion Myocardial perfusion is normal. There is no ischemia or evidence of prior infarction Ejection fraction is 60% with normal wall motion Radiologist Interpretation Radiologist Interpretation by: Matias Hastings MD Interpretation Date/Time: 05/06/2023 16:48:00
[2023-05-06] MEDS: Regadenoson 0.4 MG/5 ML SYR IVP (11:23)
== END 2023-05-06 00:44 ==
LOC: DI 00:25
PROVIDERS: PCP Nurse Practitioner; Visit Provider Nurse Practitioner
DX: I10 Essential (primary) hypertension (principal); R07.89 Other chest pain; Z82.49 Family history of ischemic heart disease and other diseases of the circulatory system
CPT/HCPCS: 78452; 93017; J2785

== ENCOUNTER → 2023-12-25 01:03 | Outpatient (CLI) | payer BC, SELFPAY ==
--- NOTE | 2023-12-25 08:10 | DI.MAMMO_ITS ---
Exam(s) MAMMO SCREENING EXAM: MAMMO SCREENING CLINICAL HISTORY: screening, Z12.39. TECHNIQUE: Bilateral full field digital CC and MLO mammographic images were obtained with 3D tomosyn thesis and utilizing computer aided detection (CAD). COMPARISON: Prior mammograms were reviewed. FINDINGS: There has been no significant change in the appearance and distribution of the fibroglandular tissue. There are no new spiculated masses nor malignant appearing microcalcification groups. There is no significant architectural distortion nor skin thickening-retraction. IMPRESSION: No radiographic evidence of malignancy. BI-RADS Category 1 - Negative Breast Density - Category B - Scattered areas of fibroglandular density Breast density Category C or D implies that the patient has dense breast tissue. Dense breast tissue can make it harder to find cancer on a mammogram. Dense breast tissue is also associated with an incr eased risk of breast cancer. This information about the result of the mammogram report was provided to the patient to raise their awareness. Use this report when you speak with the patient about their risks for breast cancer, which includes their family history. At that time, you may recommend additional screening tests (Ultrasoun d or MRI) as these tests may add significant information. A negative radiographic report should not delay biopsy if a dominant or clinically suspicious mass is present. Up to ten percent of cancers are not identified on mammography. A negative report may reinforce clinical impression. Adenosis and dense breasts may obscure an underlying neoplasm. False positive reports average 6 to 10%. Patient will receive a letter notifying them of these results.
== END ==
PROVIDERS: PCP Nurse Practitioner; Visit Provider Nurse Practitioner
DX: Z12.31 Encounter for screening mammogram for malignant neoplasm of breast (principal)
CPT/HCPCS: 77063; 77067

== ENCOUNTER → 2024-02-16 13:25 | Outpatient (CLI) | payer BC, SELFPAY ==
--- NOTE | 2024-02-16 11:30 | DI.RAD_ITS ---
Exam(s) XR HIP LT COMPLETE AP PELVIS EXAM: XR HIP LT COMPLETE AP PELVIS CLINICAL HISTORY: Lt hip pain over a month, M25.552. TECHNIQUE: 2D digital imaging was performed. COMPARISON: CR XR HIP RT COMPLETE AP PELVIS from 10/28/2019 FINDINGS: Two views. No evidence of pelvic nor hip fractures. No hip joint space narrowing. Additional lateral view of t he left hip does not reveal significant hip joint space narrowing nor osteophytes. Sacroiliac joints appear unremarkable. Sclerotic density again noted in the lateral aspect of the right iliac bone which appears unchanged a nd is probably a benign bone island. IUD is again noted in the central pelvis IMPRESSION: No obvious degenerative changes in the hips. No fractures. DATA REPOSITORY: RADIATION DOSE DELIVERED:
== END ==
PROVIDERS: PCP Nurse Practitioner; Visit Provider Nurse Practitioner
DX: M25.552 Pain in left hip (principal)
CPT/HCPCS: 73502

== ENCOUNTER 2024-03-19 00:51 | Outpatient (CLI) | payer BC, SELFPAY ==
[2024-03-19 08:06] LABS: Calculated LDL 65 mg/dL (<100); Cholesterol 144 mg/dL (<200); HDL Cholesterol 66 mg/dL (40-60); Triglyceride 69 mg/dL (<150)
[2024-03-19 08:25] LABS: Hemoglobin A1C 5.2 % (<5.7)
== END 2024-03-19 00:52 | disposition home or self-care (01) ==
LOC: LBO 00:51
PROVIDERS: PCP Nurse Practitioner; Visit Provider Nurse Practitioner
DX: E78.5 Hyperlipidemia, unspecified (principal); I10 Essential (primary) hypertension; E66.9 Obesity, unspecified
CPT/HCPCS: 36415; 80061; 83036

== ENCOUNTER 2024-10-06 02:46 | Outpatient (CLI) | payer BC, SELFPAY ==
--- NOTE | 2024-10-06 13:04 | DI.RAD_ITS ---
Exam(s) RF JOINT INJ, FLUORO GUID RAD EXAM: RF JOINT INJ, FLUORO GUID RAD CLINICAL HISTORY: L HIP PAIN,fluoro guided injection,ischial bursitis,trochanteric bursitis. The Aneesh moon has had persistent left hip pain. Noninvasive measures have been tried. To serve as both diag nostic and therapeutic, an injection under fluoroscopy was recommended. The risks of the procedure w ere discussed with their Orthopedic provider and the patient elected to proceed. TECHNIQUE: 2D and realtime digital imaging was performed. CONTRAST MATERIAL: Water soluble contrast was utilized. COMPARISON: No exams were available for comparison FINDINGS: The Patient was greeted in the fluoroscopy room. The correct side was identified and the consent was reviewed with the patient and was signed. The patient was properly positioned on the fluoroscopy ta ble. The left hipwas then prepped and draped. The left hip injection starting point was identified by the bony landmarks and fluoroscopy. The skin and soft tissue in the tract of the injection was an esthetized with 1% Bupivacaine. A spinal needle was then inserted into the left hip joint at the lev el of the head and neck junction under fluoroscopic guidance. A small amount of Omnipaque solution w as injected to confirm intraarticular placement. Once confirmed, the left hip was injected with 5cc of a solution containing 0.5% Bupivacaiine and 40 mg of Depo-Medrol. A bandaid was placed on the inj ection site. The patient tolerated the procedure well and left the department in good condition. IMPRESSION: Successful left hip injection. RADIATION DOSE DELIVERED: Ka,r=14 mGy
[2024-10-06] MEDS: methylPREDNISolone ACETATE 40 MG/ML VIAL IM (13:09)
[2024-10-06] MEDS: Bupivacaine 0.5% Pres-Free 10 ML VIAL IJ (13:11)
[2024-10-06] MEDS: Omnipaque 300 MG/ML 10 ML BTL IJ (13:12)
== END 2024-10-06 03:06 ==
LOC: DI 02:46
PROVIDERS: PCP Nurse Practitioner; Visit Provider Student in an Organized Health Care Education/Training Program
DX: M25.552 Pain in left hip (principal)
CPT/HCPCS: 20610; 77002; J0665; J1010

== ENCOUNTER 2025-04-11 09:49 | Outpatient (REF) | payer BC, SELFPAY ==
[2025-04-15 21:33] LABS: HSV 1 PCR Negative (Negative); HSV 2 PCR Positive (Negative); Specimen Source VULVAR
== END 2025-04-11 09:50 | disposition home or self-care (01) ==
LOC: LBN 09:49
PROVIDERS: PCP Nurse Practitioner; Visit Provider Obstetrics & Gynecology
DX: N90.89 Other specified noninflammatory disorders of vulva and perineum (principal)
CPT/HCPCS: 87529

== ENCOUNTER 2025-04-11 10:41 | Outpatient (CLI) | payer BC, SELFPAY ==
[2025-04-11 09:32] LABS: Abs Immature Grans 0.03 10^3/uL (0.0-0.06); Absolute Basophil Count 0.06 10^3/uL (0.0-0.2); Absolute Eosinophil Count 0.33 10^3/uL (0.0-0.7); Absolute Lymphocyte Count 2.75 10^3/uL (1.2-3.4); Absolute Monocyte Count 0.83 10^3/uL (0.1-0.8); Absolute Neutrophil Count 5.11 10^3/uL (1.2-6.7); Basophils % 0.7 %; Eosinophils % 3.6 %; HCT 38.8 % (36.0-46.0); HGB 12.9 g/dL (11.2-15.7); Immature Grans % 0.3 %; Lymphocytes % 30.2 %; MCH 30.1 pg (27.0-33.0); MCHC 33.2 % (32.0-36.0); MCV 91 fL (80-95); MPV 9.7 fL (8.0-11.0); Monocytes % 9.1 %; Neutrophils % 56.1 %; Platelet Count 297 10^3/uL (130-400); RBC 4.28 10^6/uL (3.93-5.22); RDW 14.2 % (11.7-14.6); WBC 9.11 10^3/uL (4.4-10.8)
[2025-04-11 09:34] LABS: Bilirubin Negative (Negative); Blood Negative (Negative); Clarity Clear (Clear); Glucose Negative (Negative); Ketones Negative (Negative); Leukocyte Esterase Trace (Negative); Nitrite Negative (Negative); Urobilinogen 0.2 mg/dL (Up to 0.2)
[2025-04-11 10:25] LABS: Hemoglobin A1C 5.2 % (<5.7)
[2025-04-11 10:40] LABS: Calculated LDL 57 mg/dL (<100); Cholesterol 141 mg/dL (<200); HDL Cholesterol 68 mg/dL (>or=50); Triglyceride 83 mg/dL (<150)
[2025-04-11 11:40] LABS: Epithelial Cells Rare HPF (Negative); RBC Negative HPF (0-2); WBC 0-2 HPF (0-5)
[2025-04-11 11:41] LABS: Bacteria Rare HPF (Negative); C & S Indicated? No; Casts Negative LPF (Negative); Crystals Negative HPF (Negative); Mucus Negative (Negative)
[2025-04-11 11:43] LABS: Other Cells Rare Transitional (Negative)
== END 2025-04-11 10:42 | disposition home or self-care (01) ==
LOC: LBO 10:42
PROVIDERS: PCP Nurse Practitioner; Visit Provider Family Medicine
DX: Z13.9 Encounter for screening, unspecified (principal)
CPT/HCPCS: 36415; 80061; 81003; 81015; 83036; 85025

== ENCOUNTER 2025-07-14 07:50 | Day surgery (SDC) | payer BC, SELFPAY ==
[2025-07-14] VITALS (18 sets, daily range): BP systolic 97–132; BP diastolic 44–72; PULSE 51–76; RESP 11–21; TEMP 36–36.5; O2SAT 90–100; BMI 44.2
--- NOTE | 2025-07-14 07:17 | W.PM.DSUDISC ---
Date of service: 07/14/25 Discharge Plan Disposition Patient Disposition: Home Condition: Stable Discharge Details Attending Provider: Mikey Ruelas Primary Care Provider: Leo Hui Home Meds and New Rx's Prescriptions: New naproxen 250 mg tablet 250 - 500 mg PO BID PRN (Reason: Moderate pain) Qty: 40 0RF aspirin 81 mg tablet,delayed release (DR/EC) 81 mg PO DAILY 14 Days Qty: 14 0RF oxycodone 5 mg tablet 5 - 10 mg PO Q4H PRN (Reason: Moderate to severe pain) Qty: 18 0RF Continued magnesium 250 mg tablet 500 mg PO DAILY turmeric root extract 500 mg capsule 1,000 mg PO DAILY ginko biloba 1,000 mg PO DAILY fexofenadine [Allergy Relief (fexofenadine)] 180 mg tablet 180 mg PO DAILY famotidine 20 mg tablet 20 mg PO DAILY Hair,Skin and Nails Tablet 1 tab PO DAILY gabapentin 300 mg capsule See Rx Instructions .ROUTE .COMPLEX Dose Instruction: TAKE ONE CAPSULE BY MOUTH FOUR TIMES A DAY Rx Instructions: TAKE ONE CAPSULE BY MOUTH THREE TIMES A DAY evening primrose oil 500 mg capsule 500 mg PO TID Rx Instructions: give with meal/snack multivitamin Tablet 1 tab PO DAILY cbd topical Patient Comments: for wrist and arm pain spironolacton-hydrochlorothiaz 25-25 mg tablet See Rx Instructions .ROUTE .COMPLEX Qty: 90 3RF Dose Instruction: TAKE 1 TABLET BY MOUTH DAILY Rx Instructions: TAKE 1 TABLET BY MOUTH DAILY tirzepatide (weight loss) 15 mg/0.5 mL pen injector 15 mg subcut QWEEK Qty: 2 0RF acetaminophen 500 mg tablet 1,000 mg PO TID PRN ibuprofen 800 mg tablet See Rx Instructions .ROUTE .COMPLEX Qty: 270 3RF Dose Instruction: TAKE 1 TABLET BY MOUTH EVERY 8 HOURS NEEDED FOR PAIN Rx Instructions: TAKE 1 TABLET BY MOUTH EVERY 8 HOURS NEEDED FOR PAIN diclofenac sodium 1 % gel See Rx Instructions .ROUTE .COMPLEX Qty: 100 4RF Dose Instruction: APPLY 2G TO RIGHT WRIST UP TO FOUR TIMES A DAY NEEDED Rx Instructions: APPLY 2G TO RIGHT WRIST UP TO FOUR TIMES A DAY NEEDED atorvastatin 20 mg tablet See Rx Instructions .ROUTE .COMPLEX Qty: 90 3RF Dose Instruction: TAKE ONE TABLET BY MOUTH EVERY DAY Rx Instructions: TAKE ONE TABLET BY MOUTH EVERY DAY lisinopril 10 mg tablet See Rx Instructions .ROUTE .COMPLEX Qty: 90 3RF Dose Instruction: TAKE ONE TABLET BY MOUTH EVERY DAY Rx Instructions: TAKE ONE TABLET BY MOUTH EVERY DAY diltiazem HCl 180 mg capsule,extended release 24hr See Rx Instructions .ROUTE .COMPLEX Qty: 180 3RF Dose Instruction: TAKE TWO CAPSULES BY MOUTH EVERY DAY Rx Instructions: TAKE TWO CAPSULES BY MOUTH EVERY DAY Discharge Instructions Additional Instructions: Surgery: Left hip endoscopy with iliotibial band release and trochanteric bursectomy 07/14/2025 Activity: Weightbearing as tolerated. May use crutches or walker as needed for a few days. Gradually advance to full range of motion and activity over the next few weeks. A physical therapy prescription will be provided separately in the office at follow up if needed. Prescriptions: Aspirin 81 mg take 1 daily to prevent a blood clot for 2 weeks Naproxen 250 mg take 1-2 every 12 hours with a meal as needed for moderate pain Oxycodone 5 mg take 1-2 every 4-6 hours as needed for severe pain You may use [id number] Tylenol (acetaminophen) as needed for mild pain. These pain medications may be taken all at once or in different combinations as needed. Also, recommend Colace (docusate) as a stool softener as surgery and pain medicine cause constipation. You may try [id number] diphenhydramine (Benadryl) 25-50 mg nightly as a sleep aid Dressings: Leave dressing in place for 3 days. May then remove and leave open to air or cover incisions with Band-Aids. Leave the sticky Steri-Strips in place until they fall off or remove them after you shower. May shower after 5 days. Follow-up: 10-[address] Ruelas You may take off the leg compression stockings this evening at home. You may also leave them on a few days longer if you have a history of leg swelling or edema. Let us know right away if you develop any redness, drainage, fevers, chest pain, or trouble breathing. Do not drink alcohol or drive for at least 24 hours after anesthesia. Please call the office during business hours with any questions or concerns. Discharge Orders Discharge Orders: Discharge Order (Routine); Ordered 07/14/25 Ordered By: Maurice Barbosa DS: Diagnosis Discharge Diagnosis (1) Trochanteric bursitis, left hip: Status: Acute (2) IT band syndrome: Status: Acute
--- NOTE | 2025-07-14 07:28 | ROE_ITS ---
Operative Note Operative Note PRE-OP DIAGNOSIS: Left hip 1. Iliotibial band syndrome 2. Trochanteric bursitis POST-OP DIAGNOSIS: same PROCEDURE: Left hip endoscopic 1. Iiliotibial band release, CPT# 32859 2. Trochanteric bursectomy, CPT# 38178 SURGEON: Mikey Ruelas [employer]CHOOL REGISTRAR: None None ANESTHESIA TYPE: Local By Surgeon and General LMA/ETT Refer to Anesthesia Record ESTIMATED BLOOD LOSS: 5 Patient was transported to: PACU Patient's condition: stable Indications: Please see complete medical record for details. Findings: Thickened and taut iliotibial band. Inflamed trochanteric bursitis. No notable gluteal tendon tear. Procedure Description: In the operating room, general anesthesia was induced. The patient was positioned supine on the [place] operating room table. All bony prominences were well-padded. Preoperative antibiotics were administered. The hip was prepped and draped in the usual sterile fashion. The correct patient, procedure, and side of the procedure were all verified prior to incision. 30 cc of 0.25% bupivacaine containing epinephrine was infiltrated about the subcutaneous tissues for the planned anterior lateral and distal anterolateral portals as well as deeply over the greater trochanter. A knife was used to incise the skin for the anterior lateral and distal anterolateral portals followed by blunt dissection subcutaneously. Under fluoroscopic guidance, a switching stick and arthroscope were inserted localizing the iliotibial band over the greater trochanter. Blunt dissection and the mechanical shaver were used to resect fat and overlying tissue about the center of the iliotibial band and carefully expose the anterior and posterior margins. Once there was adequate exposure of the IT band, the greater trochanter was again localized under fluoroscopic guidance with a spinal needle inserted through the skin down to bone. This central area was marked using the radiofrequency ablator. A Be aver blade was brought in and used to create a 2 cm longitudinal incision in line with the IT band fibers as well as extending it in a cruciate fashion with 2 cm incisions anteriorly and posteriorly. The radiofrequency ablator was used to achieve hemostasis. The mechanical shaver was then used to debride the IT band released edges exposing the trochanteric bursa. The mechanical shaver was then used to excise the trochanteric bursa taking care to protect musculature about the margins of the greater trochanter as well as neurovascular structures especially posteriorly. There was excellent visualization of the vastus lateralis as well as gluteus medius confirming appropriate bursa excision. The hip was brought through range of motion including internal and external rotation and there was no impinging iliotibial band tissue or remaining pathologic bursa. The viewing and working portals were switched and appropriate IT band release, trochanteric bursa excision, and hemostasis confirmed. Suction was used to remove fluid from the endoscopic space. The portals were closed using 3-0 Monocryl in a buried fashion. Steri-Strips were applied over the incisions followed by Xeroform, 4 x 4 gauze, an ABD pad, and secured with tape. The patient awoke from anesthesia without complication and was transferred to the recovery room in a stable condition. Date of Procedure: 07/14/25
[2025-07-14] MEDS: Lactated Ringers 1,000 ML 30 ML IV (08:36)
--- NOTE | 2025-07-14 08:56 | W.ANESPRE ---
General Info Date of Service Date Performed: 07/14/25 Height: 5 ft 1.75 in Weight: 108.9 kg Body Mass Index (BMI): 44.2 Surgical Procedure: Operation Date: 07/14/25 10:50 Proposed Procedure Side Surgeon p Endoscopic Iliotibial Band Release w/Trochanteric Bursectomy Left Mikey Ruelas MD Actual Procedure Side Surgeon p Endoscopic Iliotibial Band Release w/Trochanteric Bursectomy Left Mikey Ruelas MD Pre-Op Diagnosis Post-Op Diagnosis IT band syndrome: (4) Ischial bursitis of left side: (5) Trochanteric bursitis, left hip: Meds Allergies and Home Medications Allergies Allergy/AdvReac Type Severity Reaction Status Date / Time codeine AdvReac Mild NAUSEA/VOMI Verified 07/14/25 08:09 TING topiramate AdvReac Mild CONSTIPATIO Verified 07/14/25 08:09 N Home Medication ?Medication ?Instructions ?Recorded magnesium 250 mg tablet 500 mg PO DAILY 10/28/19 acetaminophen 500 mg tablet 1,000 mg PO TID PRN 04/07/20 multivitamin 1 tab PO DAILY 09/12/20 cbd topical 08/28/21 famotidine 20 mg tablet 20 mg PO DAILY 12/02/23 fexofenadine 180 mg tablet 180 mg PO DAILY 12/02/23 (Allergy Relief (fexofenadine)) ginko biloba 1,000 mg PO DAILY 12/02/23 multivitamin with minerals 1 tab PO DAILY 12/02/23 (Hair,Skin and Nails tablet) turmeric root extract 500 mg 1,000 mg PO DAILY 12/02/23 capsule diclofenac sodium 1 % topical gel See Rx Instructions .Route 08/18/24 .COMPLEX #100 grams ibuprofen 800 mg tablet See Rx Instructions .Route 08/18/24 .COMPLEX #270 tabs spironolactone 25 See Rx Instructions .Route 08/24/24 mg-hydrochlorothiazide 25 mg tablet .COMPLEX #90 tabs atorvastatin 20 mg tablet See Rx Instructions .Route 12/27/24 .COMPLEX #90 tabs lisinopril 10 mg tablet See Rx Instructions .Route 01/06/25 .COMPLEX #90 tabs diltiazem HCl 180 mg See Rx Instructions .Route 01/31/25 capsule,extended release 24 hr .COMPLEX #180 caps tirzepatide (weight loss) 15 15 mg (0.5 mL) subcut QWEEK #2 mL 02/24/25 mg/0.5 mL subcutaneous pen injector gabapentin 300 mg capsule See Rx Instructions .Route .COMPLEX 04/11/25 evening primrose oil 500 mg capsule 500 mg PO TID 04/26/25 Current Visit Medications: Current Medications Generic Name Dose Route Start Last Admin Trade Name Freq PRN Reason Stop Dose Admin Ringer's Solution 1,000 mls @ 30 mls/hr 07/14/25 06:00 07/14/25 08:36 IV 07/14/25 23:59 30 mls/hr INFUSION BUCK Administration Cefazolin Sodium 3,000 mg/ 100 mls @ 200 mls/hr 07/14/25 06:00 Sodium Chloride IV 07/14/25 23:59 PREOP BUCK IV Miscellaneous Supplies 1 each 07/14/25 06:00 Iv Access IV 07/14/25 23:59 DIRECTED BUCK Oxycodone HCl 0 mg 07/14/25 07:17 Oxycodone 5 Mg Tab PO 08/13/25 07:16 Q3H PRN PRN Pain Sodium Chloride 0 ml 07/14/25 06:00 Normal Saline Flush 10 Ml Syr IV 07/14/25 23:59 PRN PRN Sodium Chloride 0 ml 07/14/25 06:00 Normal Saline 10 Ml Vial IJ 07/14/25 23:59 DIRECTED PRN Sterile Water 0 ml 07/14/25 06:00 Water,Injection,Sterile 10 Ml Vial IJ 07/14/25 23:59 DIRECTED PRN PFSH Active Problems Active Problems: Problem Status Onset Code Partial tear of common extensor tendon of left elbow Acute ~04/2025 S56.512A Lumbar disc herniation with radiculopathy Acute M51.16 De Quervain's tenosynovitis Acute ~02/2025 M65.4 Other spondylosis with radiculopathy, lumbar region Acute ~01/2025 M47.26 Chronic wrist pain Acute M25.539, G89.29 Synovial cyst of left wrist Acute M71.332 Lumbar disc herniation Acute M51.26 DDD (degenerative disc disease), lumbar Acute M51.369 Left lumbar radiculopathy Acute ~2023 M54.16 Arthritis, lumbar spine Acute M47.816 IT band syndrome Acute M76.30 Ischial bursitis of left side Acute M70.72 Trochanteric bursitis, left hip Acute M70.62 Pain of left hip Acute M25.552 Chronic neck pain Acute M54.2, G89.29 Bilateral ankle pain Acute M25.571, M25.572 Bilateral elbow joint pain Acute M25.521, M25.522 Bilateral wrist pain Acute M25.531, M25.532 Obesity, morbid, BMI 50 or higher Acute E66.01 Right hip pain Acute M25.551 Left knee pain Acute M25.562 Neck pain Acute M54.2 Right hip pain Acute M25.551 Hyperlipidemia Acute 12/05/11 E78.5 Hypertension Acute 03/10/13 I10 Medial epicondylitis, right elbow Acute M77.01 Nonintractable headache Acute 03/10/13 R51 Neck mass Acute 03/06/15 R22.1 Migraine, unspecified, intractable, without status migrainosus Acute 03/10/13 G43.919 Lymphadenopathy Acute 03/27/15 R59.1 Impaired fasting glucose Acute 12/05/11 R73.01 Headache Acute 03/10/13 R51 De Quervain's tenosynovitis, right Acute 05/07/17 M65.4 De Quervain's tenosynovitis, left Acute 06/18/17 M65.4 Medical History Medical History Other spondylosis with radiculopathy, site unspecified (~03/2025) [facility] Encounter for screening colonoscopy Right arm pain 2021. Improved with care mgr Cat-scratch disease (03/27/15) Dr. Gay Surgical History Surgical History History of colonoscopy (~10/31/20) H/O wisdom tooth extraction S/P tonsillectomy Fine Needle aspiration neck mass (03/10/15) Negative for malignant cells; Reactive lymphocytes Dr. Gay Tobacco Smoking/Tobacco Use Status: Never Passive smoking exposure: No Alcohol Alcohol Intake: current Alcohol intake frequency: a few times a month Substance Use Substance use: Never Substance use type: does not use Prental History History 2 Para Hx # Term Pregnancies 2 Multiple births Hx # Pregnancies Ectopic pregnancies AB induced Hx Number of Living Children AB spontaneous Vital Signs and Lab Results Vital Signs Most Recent Vital Signs in EMR: Most Recent Vital Signs Temp Pulse Resp BP Pulse Ox 36.4 C L 76 18 132/72 98 07/14/25 08:22 07/14/25 08:22 07/14/25 08:22 07/14/25 08:22 07/14/25 08:22 Imaging and Studies Imaging and Studies Study information below may be from another EMR and interpreted by another provider. Please see original notes in EMR for more complete details. Stress Test Summary: Patient Name: Avani Ellis Unit #: [id number] Loc: [facility] Ordering Provider: Bernice Guevara NP Status: [facility] Primary Care Provider: Bernice Guevara NP Date of Exam: 05/06/23 Sex: F Admission Date: 05/06/23 : 1970 Age: 53 APPROVED REPORT Exam: Pharmacologic Patient Location: Out-Patient Room/Bed: Stress Nurse: Brionna Hong RN Ordering Provider:BERNICE GUEVARA, Contact Number: [phone] BMI: 46.05 Baseline Rhythm: Sinus Rhythm Indications: Chest pressure Medical History Medical History: Obesity, HLD, HTN, migraine, chronic pain Cardiac Medications: Tumeric root, spironolactone, semaglutide, magnesium, lisinopril, gabapentin, diltiazem ER, atorvastatin Allergies: Codeine, topiramate Cardiac Risk Factors: Family hx, HTN, HLD, obesity Previous Cardiac Procedures: None Pretest Chest Pain Characteristics: None Exercise History: Indeterminate Physical Disabilities: None Lung Sounds: Clear to auscultation Heart Sounds: Regular Stress Test Details Test: Exercise stress converted to pharmacologic stress due to failure to obtain a diagnostic stress test. Reason for pharmacologic stress test: Artifact with ambulation . Nuclear Acquisition: Rest Tc-99m/Stress Tc-99m 1 day Rest Isotope: Tc-99m Sestamibi. Dose: 12.0 Date: 05/06/2023 Injection Time: 904 Stress Isotope: Tc-99m Sestamibi. Dose: 36.0 Date: 05/06/2023 Injection Time: 1110 HR Resting HR Supine: 70 bpmMax Heart Rate (APMHR): 165.912626 bpm Resting HR Standin bpmTarget HR (85% APMHR): 140.524929 bpm Max HR Achieved: 107 bpm % of APMHR: 64.85 Recovery HR: 74 bpm BP Resting BP Supine: 120/70 mmHg Resting BP Standin/92 mmHg Max BP: 164/82 mmHg Recovery BP: 132/88 mmHg BP response to stress: Normal blood pressure response to stress. ECG Resting ECG: Sinus Rhythm Ectopy: None Stress ECG: Sinus Rhythm ST Change: Nondiagnostic low heart rate Arrhythmia: Rare PVC Recovery ECG: Sinus Rhythm Recovery ST Change: Nondiagnostic low heart rate Recovery Arrhythmia: None Clinical Stress Symptoms: 3/10 Chest tightness Angina Score: Non-Limiting Rate Pressure Product: 40473 Stress ECG Conclusion 1. Resting electrocardiogram was within normal limits 2. Patient underwent testing using pharmacologic stress with regadenoson 3. Peak heart rate achieved was 65% of predicted for age 4. The electrocardiographic portion of the test was nondiagnostic 5. See MPI report Stress Test Summary STAGE Time (mins) Speed (mph) Grade (%) HR [id number] Qoebeh09919/70 Gvvinmtv53825/92 131.834101.5 1 min post Lexiscan [id number] 3 min post Lexiscan [id number]/823/10 chest tightness 6 min post Lexiscan [id number]/09935/10 chest tightness 9 min post Lexiscan [id number]/88Chest tightness resolved. Transitioned to laying lexiscan due to significant artifact with ambulation. MPI Conclusion Myocardial perfusion is normal. There is no ischemia or evidence of prior infarction Ejection fraction is 60% with normal wall motion Radiologist Interpretation Radiologist Interpretation by: Matias Hastings MD Interpretation Date/Time: 05/06/2023 16:48:00 Ordered By: Bernice Guevara NP CC: NAVA LAMAR,SOBIA SKINNER Dictated By: Sobia Michelle M.D. 05/06/23 1156 <Electronically signed by Sobia Michelle M.D. in OV> 05/08/23 0705 Transcribed By: Sobia Michelle MD This is privileged, confidential information intended only for the provider named. Any use or distribution by any person other than this provider is strictly prohibited. If you receive this report in error, please notify us immediately at [phone] and return the original report to Anesthesia Assessment and Plan Anesthesia History Personal History: PONV Family History: No Family History of Anesthesia Complications Exercise Tolerance Exercise Tolerance: Metabolic Equivalents>4 Pertinent Negatives Pertinent Negatives: No Major Cardiovascular Symptoms or Complaints and No Major Pulmonary Symptoms or Complaints Cardiac & Pulmonary Exam Cardiac Exam: Normal S1/S2 Heart Sounds Pulmonary Exam: Clear Bilateral Breath Sounds and No cough or Cold Implantable Cardiac Device Does patient have a Pacemaker or an ICD?: No Airway Exam Known Difficult Airway: No Mallampati Class: 3 Mouth Opening: Normal (> 3cm) Thyromental Distance: Greater than 3 cm Neck Range of Motion: Limited ROM Neck Circumference: Thick Teeth Condition: Normal Dentition and Removable Dentures/Plates Lower (lower removable flipper) ASA Classification ASA Score: ASA 3 Emergency Case?: No NPO Status NPO Status: NPO Clears >2 hours, Solids >8 hours Anesthesia Plan Resuscitation Status: Full Code Anesthesia Technique: General Anesthesia Airway Planned: Endotracheal Tube Monitors Used: Standard Monitors
[2025-07-14] MEDS: ceFAZolin 3,000 MG in Normal Saline 100 ML 200 MG IV (10:14)
[2025-07-14] MEDS: EPINEPHrine 10 MG/10 ML ML (11:06)
[2025-07-14] MEDS: Bupivacaine 0.25% Pres-Free W/EPI 30 ML VIAL (11:06)
--- NOTE | 2025-07-14 11:20 | DI.RAD_ITS ---
Exam(s) XR HIP LT IN OR EXAM: XR HIP LT IN OR CLINICAL HISTORY: IT band syndrome. TECHNIQUE: 2D and realtime digital imaging was performed. COMPARISON: No exams were available for comparison FINDINGS: Please see procedure note for details. Fluoro time: 3.7seconds RADIATION DOSE DELIVERED: martha Tipton=0.84 mGy
[2025-07-14] MEDS: fentaNYL 100 MCG/2 ML VIAL IVP (11:42)
--- NOTE | 2025-07-14 12:41 | W.ANESPOSTOP ---
Postoperative Evaluation Date, Time and Location Date Performed: 07/14/25 Time Performed: 12:41 Patient Location: Day Surgery Unit Vital Signs Most Recent Imported Vital Signs: Most Recent Vital Signs Temp Pulse Resp BP Pulse Ox 36.0 C L 56 L 16 129/62 96 07/14/25 12:08 07/14/25 12:08 07/14/25 12:08 07/14/25 12:08 07/14/25 12:08 Pain Score Most Recent Pain Score: Most Recent Pain Score Pain Level 0 07/14/25 12:08 Assessment Mental Status: Awake (Alert & Oriented to Patient Baseline) Airway and Respiratory Function: Patent airway with normal (patient baseline) respiratory exam Cardiovascular Function: Hemodynamically Stable Hydration Status: Adequately Hydrated Nausea & Vomiting: No Nausea or Vomiting Pain: Pt. Denies Any Pain Peripheral Nerve Block: Patient did not receive a nerve block
[2025-07-14] MEDS: oxyCODONE 5 MG TAB PO (14:02)
== END 2025-07-14 14:20 | disposition home or self-care (01) ==
PROVIDERS: PCP Family Medicine; Visit Provider Student in an Organized Health Care Education/Training Program
PROC: (CPT 29863; principal; 2025-07-14 10:30)
DX: M70.62 Trochanteric bursitis, left hip (principal); M76.32 Iliotibial band syndrome, left leg
CPT/HCPCS: 27062; 27305; 73501; J0131; J0690; J1100; J1885; J2003; J2371; J2405; J2704; J3010

== ENCOUNTER 2025-07-26 01:04 | Outpatient (CLI) | payer BC, SELFPAY ==
--- NOTE | 2025-07-26 12:00 | DI.MAMMO_ITS ---
Exam(s) MAMMO SCREENING EXAM: MAMMO SCREENING CLINICAL HISTORY: screening,Z12.39 TECHNIQUE: Bilateral full field digital CC and MLO mammographic images were obtained with 3D tomosynthesis and utilizing computer aided detection (CAD). COMPARISON: Comparison is made with prior examinations. FINDINGS: Masses/Architectural Distortion: No suspicious masses or areas of architectural distortion are present. Microcalcifications: No suspicious pleomorphic-type are seen. Skin Thickening/Nipple Retraction: None. IMPRESSION: 1. No significant interval change with no specific features of malignancy noted. 2. Unless there is more urgent need, screening mammography is recommended, as per [place] [employer] guidelines. Category: Breast Density - Category C - The breast are heterogeneously dense, which may obscure small masses. Breast density Category C or D implies that the patient has dense breast tissue. Dense breast tissue can make it harder to find cancer on a mammogram. Dense breast tissue is also associated with an increased risk of breast cancer. This information about the result of the mammogram report was provided to the patient to raise their awareness. Use this report when you speak with the patient about their risks for breast cancer, which includes their family history. At that time, you may recommend additional screening tests (Ultrasound or MRI) as these tests may add significant information. A negative radiographic report should not delay biopsy if a dominant or clinically suspicious mass is present. Up to ten percent of cancers are not identified on mammography. A negative report may reinforce clinical impression. Adenosis and dense breasts may obscure an underlying neoplasm. False positive reports average 6 to 10%. Patient will receive a letter notifying them of these results.
== END 2025-07-26 01:24 ==
LOC: DI 01:04
PROVIDERS: PCP Nurse Practitioner; Visit Provider Obstetrics & Gynecology
DX: Z12.31 Encounter for screening mammogram for malignant neoplasm of breast (principal)
CPT/HCPCS: 77063; 77067

== ENCOUNTER 2025-07-26 01:36 | Outpatient (CLI) | payer BC, SELFPAY ==
[2025-07-26 12:50] LABS: ALT 29 U/L (14-59); AST 18 U/L (15-37); Albumin 4.0 g/dL (3.4-5.0); Alkaline Phosphatase 84 U/L (46-116); Anion Gap 9.4 mmol/L (3-11); BUN 14 mg/dL (7-18); Bilirubin, Total 0.5 mg/dL (0.2-1.0); CO2 25.6 mmol/L (21.0-32.0); Calcium 9.2 mg/dL (8.5-10.1); Chloride 98 mmol/L (98-107); Estimated GFR 100.81 (mL/min/1.73m2); Glucose 85 mg/dL (74-106); Potassium 3.9 mmol/L (3.5-5.1); Sodium 133 mmol/L (136-145); TSH 1.48 uIU/mL (0.36-3.74); Total Protein 7.1 g/dL (6.4-8.2)
== END 2025-07-26 01:37 | disposition home or self-care (01) ==
LOC: LBO 01:36
PROVIDERS: PCP Nurse Practitioner; Referring Provider Family Medicine; Visit Provider Family Medicine
DX: I10 Essential (primary) hypertension (principal)
CPT/HCPCS: 36415; 80053; 84443

== ENCOUNTER 2025-09-01 07:56 | Outpatient (CLI) | payer BC, SELFPAY ==
[2025-09-01 08:01] VITALS: BP 107/57; PULSE 70; RESP 20; TEMP 37; O2SAT 99
[2025-09-01 08:57] VITALS: PULSE 69; O2SAT 97
[2025-09-01 09:00] VITALS: PULSE 64; O2SAT 98
[2025-09-01 09:10] VITALS: PULSE 68; O2SAT 97
--- NOTE | 2025-09-01 09:11 | PDOC.PAIN ---
Date of service: 09/01/25 Time of Service: 09:11 Pain Managment Procedure Note Procedure Note Procedure Note: PROCEDURE NOTE ULTRASOUND-GUIDED LEFT GLUTEUS MEDIUS TENOTOMY PROCEDURE Date of Service: September 01, 2025 Patient: Avani Ellis Provider: Manish Ferrer DO, MPH Pre-operative diagnosis: Lateral hip pain ICD-10 M25.559 Post-operative diagnosis: Same Pre-procedure pain: VAS= 2/10 COMMENTS: She is having a hard time walking because of this pain Avani Ellis has been referred to the [facility] for an ultrasound-guided LEFT gluteus medius needling procedure. Avani was interviewed and the medical record reviewed. There were no medical, pharmacologic, radiographic or other structural contraindications to attempting a ultrasound-guided gluteus medius tenotomy procedure. Risks and potential side effects as well as potential benefit of the procedure were reviewed with Ms. Ellis, and her voiced concerns were addressed. After verbal informed consent was obtained, the printed consent form was signed. Standard time-out procedure was performed. Avani was placed in the lateral recumbant position on the procedure table with the affected side up. Next, automated blood pressure cuff and pulse oximeter applied. The skin entry point for approaching the LEFT lateral hip and Gluteus Medius tendon was identified under the most advantageous ultrasound view and marked. Following thorough Chlorhexadine preparation of the skin and draping and 1% lidocaine infiltration of the skin entry point and subcutaneous tissues, a 22 gauge Pajunk Ultrasound needle was placed under ultrasound guidance using an in-plane view to the left Glutues medius tendon. 5 ml 1% Lidocaine was injected outside the tendon with hydrodisection between the tendon and the peripheral tissue. Next, I made numerous passes through the gluteus medius tendon. There was a bright area on the ultrasound images which likely represented calcium buildup. I passed through this area many times in an attempt to break it up. I injected 3 ml of 1% Lidocaine just outside the tendon. The needle was then removed without difficulty. Avani's vital signs were stable throughout the procedure and were as recorded in the docflowsheet by the nursing staff. If given, dosages of intravenous drugs for anxiolysis and analgesia were documented in MAR. Follow up plans and appointments were discussed with the vAani. Post procedure instruction was given as documented in nursing documentation and having met discharge criteria, Avani was discharged from the [facility]. COMMENTS: No apparent complications. Post-procedure pain;VAS= 0/10 The patient understands that she should be nearly mwq-ejluff-pjnuvxe over the next 7 days. After that he will concentrate of gluteal muscle and IT band stretching for 2 weeks. At 3 weeks post-tendon needling procedure, Avani can start toning exercises for the gluteal muscles. She understands. F/U with our office as needed Gluteus Medius tenotomy or needle fenestration has been shown to produce improvement in the majority of patients at a 2 month follow up. Aravind MCFARLANE1, James J2, Olga CM2, Simran SM2, Becky M2, Gama A2.Ultrasound-Guided Fenestration of Tendons About the Hip and Pelvis: Clinical Outcomes. J Ultrasound Med. 2015 Nov;34(11):2029-35. doi: 10.7863/ultra.[email or web address]. Epub 2014Jul 21. Ramon MCFARLANE1, Aravind MCFARLANE, Spenser R.Sonographically guided percutaneous needle tenotomy for the treatment of chronic tendinosis. J Ultrasound Med. 2009 Jun;28(9):1187-92. Aravind MCFARLANE1, Olga CM2, Blair PT3, Steve IS4, Christiano A5, Kathy B5, Thuan A5, Gama A6.Greater Trochanteric Pain Syndrome: Percutaneous Tendon Fenestration Versus Platelet-Rich Plasma Injection for Treatment of Gluteal Tendinosis. J Ultrasound Med. 2016 Aug;35(11):6953-6130. Epub 2016 Jul 12. I personally performed this entire procedure. Manish Ferrer DO, MPH ABPMR-subspecialty board certification in Pain Medicine [facility] Coding Conscious Sedation used for procedure: No CPT Codes: Inj,Bursa/Tendon w/US Large; Iliopsoas Bursa Injection w/US - ([id number] ~G) Additional Codes: Date of Service () Diagnoses: Glueteus medius tendinopathy, lateral hip pain
[2025-09-01] MEDS: Nerve Block Tray 1 EACH MC (09:14)
[2025-09-01] MEDS: methylPREDNISolone ACETATE 40 MG/ML VIAL IJ (09:14)
[2025-09-01] MEDS: Lidocaine 2% Pres-Free 5 ML VIAL IJ (09:14)
[2025-09-01] MEDS: Bupivacaine 0.5% Pres-Free 10 ML VIAL IJ (09:15)
== END 2025-09-01 07:57 | disposition home or self-care (01) ==
LOC: PC 07:56
PROVIDERS: PCP Family Medicine; Visit Provider Preventive Medicine Occupational Medicine
DX: M25.552 Pain in left hip (principal)
CPT/HCPCS: 20611; J0665; J1010